=== PATIENT | female | born 1925 | race African-American/Black ===

== ENCOUNTER → 2016-09-09 | Outpatient (CLI) | payer MEDICARE, OTHER ==
[~2016-09-09] MED LIST: ACET1TAB15 PO; ESOM40CA PO; HYDR50 PO; LISI-662 PO; MULT-959 PO; TRAM50TA4 PO; [UNRECOGNIZED DRUG - REMARK] PO
== END | disposition home or self-care (01) ==
LOC: RADPV 15:23
PROVIDERS: ATTEND Specialist
DX: M16.0 Bilateral primary osteoarthritis of hip (principal); M25.852 Other specified joint disorders, left hip; M25.851 Other specified joint disorders, right hip
CPT/HCPCS: 73521

== ENCOUNTER 2016-10-07 07:10 | Day surgery (SDC) | payer MEDICARE, OTHER ==
[~2016-10-07] VITALS: Ht 160 cm; Wt 59.1 kg
[2016-10-07] MEDS ORDERED: SODIUM CHLORIDE 0.9% 1,000 ML IV ONE ×2 (07:11→07:30)
[2016-10-07] MEDS ORDERED: FentaNYL CITRATE-PF 100 MCG/2 ML VIAL ONE (09:31)
[2016-10-07] MEDS ORDERED: MIDAZOLAM HCL 2 MG/2 ML VIAL ONE (09:31)
[2016-10-07] MEDS ORDERED: TRIAMCINOLONE ACETONIDE 40 MG/ML VIAL ONE (09:32)
[2016-10-07] MEDS ORDERED: SODIUM BICARBONATE 50 MEQ/50 ML VIAL ONE (09:32)
[2016-10-07] MEDS ORDERED: LIDOCAINE HCL/PF 2% 5 ML VIAL ONE (09:32)
[2016-10-07] MEDS ORDERED: LIDOCAINE HCL/PF 1% 30 ML VIAL ONE (09:32)
[2016-10-07] MEDS ORDERED: IOHEXOL 300 MG/ML 10 ML VIAL ONE (09:32)
[2016-10-07] MEDS ORDERED: BUPIVACAINE HCL/PF 0.75% 10 ML VIAL ONE (09:32)
[2016-10-07 09:43] VITALS: BP 230/100
[2016-10-07 10:00] VITALS: BP 151/70
[2016-10-07] MEDS ORDERED: IOHEXOL 300 MG/ML 10 ML VIAL IARTIC ONE (10:00)
[2016-10-07] MEDS ORDERED: FentaNYL CITRATE-PF 100 MCG/2 ML VIAL IVP ONE (10:00)
[2016-10-07] MEDS ORDERED: LIDOCAINE HCL/PF 2% 5 ML VIAL IARTIC ONE (10:00)
[2016-10-07] MEDS ORDERED: MIDAZOLAM HCL 2 MG/2 ML VIAL IVP ONE (10:00)
[2016-10-07] MEDS ORDERED: LIDOCAINE 1% 30 ML/SOD BICARB 8.4% 4 ML SQ ONE (10:00)
[2016-10-07] MEDS ORDERED: TRIAMCINOLONE ACETONIDE 40 MG/ML VIAL IARTIC ONE (10:00)
== END 2016-10-07 11:10 | disposition home or self-care (01) ==
LOC: SDS 07:10
PROVIDERS: ATTEND Specialist
DX: M16.12 Unilateral primary osteoarthritis, left hip (principal); I10 Essential (primary) hypertension
CPT/HCPCS: 20610; 77002; J2250; J3010; J3301; J3490 ×3; J7030; Q9967